=== PATIENT | male | born 1990 | race Caucasian/White ===

== ENCOUNTER → 2019-04-16 | Outpatient (CLI) | payer OTHER ==
--- NOTE | 2019-04-16 16:44 | REP ---
Right hand six views: There are no comparisons. There is a fiberglass cast. There is a fracture of the fifth digit metacarpal maintained in satisfactory position alignment. Mineralization and joint spaces are normal. There are no calcifications or foreign bodies. Electronically Signed by Asad Quezada MD 04/16/2019 04:37 P
== END ==
LOC: M RAD 08:43
PROVIDERS: ATTEND Surgery
DX: S62.301D Unspecified fracture of second metacarpal bone, left hand, subsequent encounter for fracture with routine healing (principal); X58.XXXD Exposure to other specified factors, subsequent encounter; Y92.9 Unspecified place or not applicable

== ENCOUNTER → 2019-05-19 | Outpatient (CLI) | payer OTHER ==
--- NOTE | 2019-05-19 12:27 | REP ---
Four views right hand: 05/19/2019. Indication: Fracture. Comparison: 04/16/2019. Findings: Casting material has been removed. The fourth and fifth metacarpals show expected evolution of the previously described fractures. No new fractures are present. There is no evidence of subluxation or dislocation. Impression: Continued healing of the fourth and fifth metacarpal fractures. No acute findings. Electronically Signed by Axel Allison DO 05/19/2019 12:19 P
== END ==
LOC: M RAD 08:46
PROVIDERS: ATTEND Surgery
DX: S62.304D Unspecified fracture of fourth metacarpal bone, right hand, subsequent encounter for fracture with routine healing (principal); S62.306D Unspecified fracture of fifth metacarpal bone, right hand, subsequent encounter for fracture with routine healing; X58.XXXD Exposure to other specified factors, subsequent encounter